=== PATIENT | female | born 1970 | race African-American/Black ===

== ENCOUNTER 2020-07-24 14:25 | Emergency (ER) | payer OTHER, SELFPAY ==
[~2020-07-24] VITALS: Ht 165.1 cm; Wt 73.9 kg
[2020-07-24 14:33] VITALS: BP 110/73
[2020-07-24] MEDS ORDERED: diphenhydrAMINE 50 MG/ML VIAL IM ONE (15:35)
[2020-07-24] MEDS ORDERED: MORPHINE SULFATE 4 MG/ML SYR IM ONE ×2 (15:35→16:55)
--- NOTE | 2020-07-24 15:51 | NUR ---
PT W/C ASSISTED TO BED 3.
--- NOTE | 2020-07-24 16:00 | NUR ---
49 y/o female c/o both knees, back 10/10 nerve pain continuous at rest. Pt states she called PCP that percocet 10mg was "not working", increased dosage to 20mg, after 2 days pt referred to ER. Pt had some SOB due to pain. Currently 96% RA. PMH: HTN, HLD, dvt, palpatations, port cath. RX: PErcocet 20mg, morphine 100mg BID, blood thinners, and mag [id number].
--- NOTE | 2020-07-24 16:15 | NUR ---
Performed SIXTO FLYNN, walked to lab.
[2020-07-24 17:12] VITALS: BP 110/73
--- NOTE | 2020-07-24 17:13 | NUR ---
Patient discharged with v/s stable. Written and verbal after care instructions given and explained. Patient verbalized understanding. Ambulatory with steady gait. All questions addressed prior to discharge. Advised to follow up with PMD.
== END 2020-07-24 17:13 | disposition home or self-care (01) ==
LOC: MED 14:25
DX: G89.29 Other chronic pain (principal); J45.909 Unspecified asthma, uncomplicated; Z20.828 Contact with and (suspected) exposure to other viral communicable diseases; Z88.2 Allergy status to sulfonamides
CPT/HCPCS: 71045; 96372; 99284; J1200; J2270; U0003

== ENCOUNTER 2020-08-21 22:08 | Emergency (ER) | payer OTHER, SELFPAY ==
[~2020-08-21] VITALS: Ht 167.6 cm; Wt 68.9 kg
[2020-08-21 22:12] VITALS: BP 149/92
[2020-08-21] MEDS: MAG SULF 2000 MG/WATER PREMIX 50 ML IV ONE (22:50)
--- NOTE | 2020-08-21 23:01 | NUR ---
PT TAKEN TO XRAY
[2020-08-22] MEDS ORDERED: KETOROLAC 30 MG/ML VIAL ONE
[2020-08-22] MEDS ORDERED: methylPREDNISolone SS 125 MG/2 ML VIAL ONE (00:01)
[2020-08-22] MEDS: methylPREDNISolone SS 125 MG in WATER STERILE 2 ML IV ONE (00:15)
--- NOTE | 2020-08-22 00:15 | NUR ---
PRIOR TO ADMINISTRATION OF ORDERED MEDICAITONS, PT REPORTS ALLERGY TO MAGNESIUM SULFATE AND STATES " I USUALLY HAVE TO HAVE 50MG OF BENADRYL BEFORE I TAKE THE MAGNESIUM BECAUSE I GET A RASH ALL OVER MY BODY." ERMD MADE AWARE. PER ERMD DISCONTINUE MAGNESIUM SULFATE ORDER.
[2020-08-22] MEDS: KETOROLAC 30 MG/ML VIAL IVP ONE (00:16)
[2020-08-22] MEDS: NACL 0.9% 1,000 ML IV ONE (00:57)
--- NOTE | 2020-08-22 01:56 | NUR ---
IV removed from port, catheter intact and site benign. Applied folded 4x4 gauze and tape to stop bleeding.
[2020-08-22 02:05] VITALS: BP 140/87
--- NOTE | 2020-08-22 02:05 | NUR ---
Patient discharged with v/s stable. Written and verbal after care instructions given and explained. Patient alert, oriented and verbalized understanding of instructions. Ambulatory with steady gait. All questions addressed prior to discharge. ID band removed. Patient advised to follow up with PMD. Rx of albuterol, prednisone, advair given. Patient educated on indication of medication including possible reaction and side effects. Opportunity to ask questions provided and answered.
== END 2020-08-22 02:05 | disposition home or self-care (01) ==
LOC: MED 22:08
DX: J45.901 Unspecified asthma with (acute) exacerbation (principal); I10 Essential (primary) hypertension; Z88.2 Allergy status to sulfonamides; Z95.0 Presence of cardiac pacemaker; Z98.890 Other specified postprocedural states
CPT/HCPCS: 71045; 96361; 96374; 96375; 99284; J1885; J2930; J3475; J7030